=== PATIENT | male | born 1995 | race African-American/Black ===

== ENCOUNTER 2020-11-09 04:23 | Emergency (ER) | payer SELFPAY ==
[~2020-11-09] VITALS: Ht 182.9 cm; Wt 87.0 kg
[2020-11-09] MEDS ORDERED: ACET-2708 MT (05:16)
[2020-11-09 05:23] VITALS: BP 115/64
== END 2020-11-09 05:23 | disposition home or self-care (01) ==
LOC: ER 04:23
DX: K08.89 Other specified disorders of teeth and supporting structures (principal)
CPT/HCPCS: 99282